=== PATIENT | female | born 1960 | race Caucasian/White ===

== ENCOUNTER → 2018-01-11 | Outpatient (CLI) | payer BC ==
--- NOTE | 2018-01-12 11:25 | MM ---
Reason for exam: clinical finding. Last mammogram was performed 3 years and 4 months ago. History: Patient is postmenopausal. Took hormonal contraceptives for 2 years. Physical Findings: Nurse Summary: 0.5cm nodule in the right breast at 10 o'clock (nurse mj). MG 3D Diag Mammo W/Cad LIUDMILA Bilateral CC and MLO view(s) were taken. Prior study comparison: September 19, 2014, bilateral MG screening mammo w CAD. April 02, 2010, bilateral diagnostic digital mammog. There are scattered fibroglandular densities. Superficial 7mm circumscribed mass 10 o'clock anterior right breast is new. Similar 8mm lesion anterior upper outer quadrant left breast is also new. These results were verbally communicated with the patient and result sheet given to the patient on 01/11/18. ASSESSMENT: Incomplete: need additional imaging evaluation, BI-RAD 0 RECOMMENDATION: Ultrasound of both breasts.
--- NOTE | 2018-01-12 11:32 | USB ---
Reason for exam: additional evaluation requested from abnormal screening. History: Patient is postmenopausal. Took hormonal contraceptives for 2 years. US Breast Limited BILAT Right complete breast ultrasound includes all four quadrants, the retroareolar region and axilla. Finding demonstrates a 0.4 x 0.3 x 0.2cm hypoechoic lesion too small to characterize at 9 o'clock, 6 month follow up recommended, a 0.5 x 0.7 x 0.6cm oval, hypoechoic, vascular lesion at 10 o'clock BB, but does not clearly involve the skin for which a biopsy is recommended and a 1.1 x 0.8 x 0.9cm oval, benign lesion at the axillary tail. Left limited breast ultrasound including focal area of concern, retroareolar and axilla demonstrates a 0.7 x 0.8 x 0.6cm oval, lobular, hypoechoic, vascular lesion at 3 o'clock may correspond to the mammographic finding for which a biopsy is recommended and a 1.3 x 1.9 x 0.7cm oval node prominent but normal appearing at 4 o'clock. These results were verbally communicated with the patient and result sheet given to the patient on 01/11/18. ASSESSMENT: Suspicious, BI-RAD 4 RECOMMENDATION: Surgical consultation and ultrasound core biopsy of both breasts. Called Dr. Reaves with mammographic findings and has scheduled an appointment for the patient for 02/15/18 at 3:[address] Mcdowell. Biopsy scheduled for 01/23/18 at 1:00. PRELIMINARY REPORT CALLED AND FAXED TO DR. MCDOWELL ON 01/12/18.
== END | disposition home or self-care (01) ==
LOC: RADMAMWWP 08:15
PROVIDERS: ATTEND Obstetrics & Gynecology
DX: R92.8 Other abnormal and inconclusive findings on diagnostic imaging of breast (principal); N63.10 Unspecified lump in the right breast, unspecified quadrant
CPT/HCPCS: 77062; 77066

== ENCOUNTER → 2018-01-23 | Day surgery (SDC) | payer BC ==
[2018-01-23 12:19] VITALS: RESP 16; BMI 31.1
--- NOTE | 2018-01-23 13:55 | USB ---
EXAMINATION TYPE: US biopsy breast VAD LT, US biopsy breast VAD RT, MG diagnostic mammo BI wo CAD DATE OF EXAM: 01/23/2018 CLINICAL HISTORY: R92.8 abnormal mammogram. Abnormal ultrasound TECHNIQUE: Ultrasound guided core biopsy of bilateral breast with clip placement and follow-up diagnostic two-view bilateral mammogram. COMPARISON: Prior ultrasound and mammogram January 11, 2018 and older studies. FINDINGS: The procedure of ultrasound guided core biopsy was explained to the patient. Benefits, alternatives, and risks were discussed. An informed consent was then obtained. The patient was placed in supine positioning for imaging and for the procedure. Preprocedure ultrasound redemonstrates just below skin surface 10:00 position zone a right breast a 5 to 6 mm well-defined heterogeneous hypoechoic vascular solid lesion. It also redemonstrates a slightly deeper and lobulated heterogeneous hypoechoic solid lesion at 3:00 position zone A in the left breast roughly 7 mm long axis. The overlying skin was prepped and draped in usual sterile fashion. Lidocaine buffered with bicarbonate was used as anesthetic into the skin and subcutaneous tissue. Lidocaine with epinephrine is used as anesthetic into the deeper tissue of concern in both breasts. Under ultrasound guidance, a 12-gauge vacuum assisted biopsy gun device was used to obtain 2 core samples on the right and 3 on the left. Following this, a biopsy clip was left in each lesion. The patient tolerated the procedure well without any immediate complication. The patient was kept in the radiology department for short stay after the procedure and then discharged home in stable condition. Postprocedure mammogram shows clip corresponding to palpable abnormality in lesion anteriorly in the right breast upper outer quadrant and corresponds to new nodule upper outer aspect of left breast. IMPRESSION: Successful, uncomplicated ultrasound guided core biopsy of areas of concern in the bilateral breasts, full pathology results to follow. Intermediate index of suspicion bilateral breast, left slightly more suspicious than right. Pathology Results: High Risk A. BREAST, RIGHT, 10:00, ULTRASOUND GUIDED CORE BIOPSY: Intraductal papilloma, final characterization pending consultation. See addendum/final diagnosis. B. BREAST, LEFT, 3:00, ULTRASOUND GUIDED CORE BIOPSY: Intraductal papilloma, final characterization pending consultation. See addendum/final diagnosis. 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 Please see comment. 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 Please see comment. Recommendation Surgical consult of both breasts. [facility]
[2018-01-23 14:19] VITALS: BP 104/66; PULSE 66; TEMP 98
== END | disposition home or self-care (01) ==
LOC: RADUSWWP 12:04
PROVIDERS: ATTEND Surgery
DX: D24.1 Benign neoplasm of right breast (principal); D24.2 Benign neoplasm of left breast; R92.8 Other abnormal and inconclusive findings on diagnostic imaging of breast
CPT/HCPCS: 88305; 88342; 77066; 19083; 19084; A4648; J2001

== ENCOUNTER → 2018-09-14 | Outpatient (CLI) | payer BC ==
--- NOTE | 2018-09-14 10:28 | MM ---
Reason for exam: additional evaluation requested from prior study. Last mammogram was performed 8 months ago. History: Patient is postmenopausal and has history of high-risk lesion on a previous biopsy at age 57. High risk US biopsy breast add'l VAD LT of the left breast, January 23, 2018. High risk US biopsy breast VAD RT of the right breast, January 23, 2018. Took hormonal contraceptives for 2 years. Physical Findings: Nurse Summary: 0.25cm nodule in the right breast at 9 o'clock (nurse irving). MG 3D Diag Mammo W/Cad LIUDMILA Bilateral CC and MLO view(s) were taken. Prior study comparison: January 23, 2018, bilateral MG diagnostic sherry BI wo CAD. January 11, 2018, bilateral MG 3d diag mammo w/cad LIUDMILA. The breast tissue is heterogeneously dense. This may lower the sensitivity of mammography. Previous mammotome biopsy in the right and left breast. There is chronic nodularity bilaterally. Patient reported previous recommendation for excisional biopsy bilaterally. These results were verbally communicated with the patient and result sheet given to the patient on 09/14/18. ASSESSMENT: Benign, BI-RAD 2 RECOMMENDATION: Routine screening mammogram of both breasts in 1 year.
== END | disposition home or self-care (01) ==
LOC: RADMAMWWP 09:33
PROVIDERS: ATTEND Surgery
DX: R92.8 Other abnormal and inconclusive findings on diagnostic imaging of breast (principal)
CPT/HCPCS: 77062; 77066

== ENCOUNTER → 2020-10-13 | Outpatient (CLI) | payer BC ==
--- NOTE | 2020-10-14 08:00 | BD ---
EXAMINATION TYPE: Axial Bone Density DATE OF EXAM: 10/13/2020 COMPARISON: NONE CLINICAL HISTORY: Height: 61.5 IN Weight: 145 LBS RISK FACTORS HISTORY OF: Family History of Osteoporosis: YES MOTHER AND GRANDMOTHER Active: YES Diet low in dairy products/other sources of calcium: YES Postmenopausal woman: ABLATION AGE 45 MEDICATIONS: Additional Medications: NONE EXAM MEASUREMENTS: Bone mineral densitometry was performed using the [employer] System. Bone mineral density as measured about the Lumbar spine is: ----- L1-L4(G/cm2): 1.002 T Score Values are as follows: ----- L2: -1.4 ----- L3: -1.3 ----- L4: -1.6 ----- L1-L4: -1.5 Bone mineral density BASELINE Bone mineral density about the R hip (g/cm2): 0.955 Bone mineral density about the L hip (g/cm2): 0.990 T Score values are as follows: -----R Neck: -0.6 -----L Neck: -0.3 -----R Total: 0.3 -----L Total: 0.5 Bone mineral density BASELINE IMPRESSION: Osteopenia (T Score between -2.5 and -1). There is slightly increased risk of fracture and the patient may be considered for treatment. Re-Screen 2-5 years. NOTE: T-SCORE=SD OF THE YOUNG ADULT MEAN.
== END | disposition home or self-care (01) ==
LOC: RADBDWWP 14:55
PROVIDERS: ATTEND Family Medicine
DX: M85.80 Other specified disorders of bone density and structure, unspecified site (principal)
CPT/HCPCS: 77080

== ENCOUNTER → 2020-10-21 | Outpatient (CLI) | payer BC ==
--- NOTE | 2020-10-23 14:20 | MM ---
Reason for exam: screening (asymptomatic). Last mammogram was performed 2 years and 1 month ago. History: Patient is postmenopausal and has history of high-risk lesion on a previous biopsy at age 57. High risk US biopsy breast add'l VAD LT of the left breast, January 23, 2018. High risk US biopsy breast VAD RT of the right breast, January 23, 2018. Took hormonal contraceptives for 2 years. Physical Findings: A clinical breast exam by your physician is recommended on an annual basis and results should be correlated with mammographic findings. MG 3D Screening Mammo W/Cad Bilateral CC and MLO view(s) were taken. Prior study comparison: September 14, 2018, bilateral MG 3d diag mammo w/cad LIUDMILA. January 23, 2018, bilateral MG diagnostic sherry BI wo CAD. There are scattered fibroglandular densities. Previous mammotome biopsy in the right and left breast. There is chronic nodularity bilaterally. No significant changes when compared with prior studies. ASSESSMENT: Benign, BI-RAD 2 RECOMMENDATION: Routine screening mammogram of both breasts in 1 year.
== END | disposition home or self-care (01) ==
LOC: RADMAMWWP 14:52
PROVIDERS: ATTEND Obstetrics & Gynecology
DX: Z12.31 Encounter for screening mammogram for malignant neoplasm of breast (principal); Z78.0 Asymptomatic menopausal state
CPT/HCPCS: 77063; 77067

== ENCOUNTER → 2023-05-09 | Outpatient (CLI) | payer BC ==
--- NOTE | 2023-05-10 20:41 | MM ---
Reason for Exam: Screening (asymptomatic). Last mammogram was performed 1 year(s) and 4 month(s) ago. Patient History: Menarche at age 13. First Full-Term at age 24. Postmenopausal. Patient has history of breast feeding. Patient used Hormonal Contraceptives for 2 years. 01/23/2018, High risk Core Biopsy on the left side. 01/23/2018, High risk Core Biopsy on the right side. Risk Values: Evelina 5 year model risk: 2.1%. NCI Lifetime model risk: 9.2%. Prior Study Comparison: 09/14/2018 Bilateral Diagnostic Mammogram, [facility]. 10/21/2020 Bilateral Screening Mammogram, [facility]. 01/26/2022 Bilateral MG 3D screening mammo w/cad, [facility]. Tissue Density: There are scattered fibroglandular densities. Findings: Analyzed By CAD. Chronic nodularity and unchanged areas of asymmetric densities bilaterally. Microclip left breast relating to prior biopsy. There is no suspicious group of microcalcifications or new suspicious mass in either breast. Overall Assessment: Benign, BI-RAD 2 Management: Screening Mammogram of both breasts in 1 year. . Patient should continue monthly self-breast exams. A clinical breast exam by your physician is recommended on an annual basis. This exam should not preclude additional follow-up of suspicious palpable abnormalities. Note on Evelina scores and lifetime risk: 1. A Evelina score greater than 3% is considered moderate risk. If this is the case, consider specialist referral to assess eligibility for a risk reducing agent. 2. If overall lifetime risk for the development of breast cancer is 20% or higher, the patient may qualify for future screening with alternating mammogram and breast MRI. Electronically signed and approved by: Gilmar Cano M.D. Radiologist
== END | disposition home or self-care (01) ==
LOC: RADMAMWWP 15:14
PROVIDERS: ATTEND Obstetrics & Gynecology
DX: Z12.31 Encounter for screening mammogram for malignant neoplasm of breast (principal); Z78.0 Asymptomatic menopausal state; Z80.3 Family history of malignant neoplasm of breast
CPT/HCPCS: 77063; 77067